=== PATIENT | female | born 1955 | race Hispanic/Latino ===

== ENCOUNTER 2018-08-09 16:38 | Inpatient (IN) | payer MEDICARE ==
[~2018-08-09] VITALS: Ht 162.6 cm; Wt 103.6 kg
[~2018-08-09 16:38] MED LIST: ACET-2900 PO; ALBU8.5H8 IH; ATOR20TA65 PO; CASCARA SAGRADA PO; DICY10CA13 PO; DULO20CA17 PO; FLUT16H NASAL; HYDROCORTISONE CREAM TP; IBUP-2077 PO; LORA10TA7 PO; LOSA50TA25 PO; OMEP40CA37 PO; PHEN100C9 PO; TRAM50TA4 PO
[2018-08-09 17:49] LABS: BASOPHILS % (AUTO) 0.3 % (0.0-5.0); EOSINOPHILS % (AUTO) 0.9 % (0.0-8.0); HEMATOCRIT 42.9 % (36-48); LYMPHOCYTES % (AUTO) 10.9 % (21.0-51.0); MEAN CORPUSCULAR VOLUME 88.1 fL (79-99); MONOCYTES % (AUTO) 6.3 % (3.0-13.0); NEUTROPHILS % (AUTO) 81.6 % (40.0-77.0); PLATELET COUNT (AUTO) 159 K/uL (130-400); RED BLOOD CELL COUNT(AUTO) 4.87 MIL/uL (4.00-5.50); RED CELL DISTRIBUTION WIDTH 14.2 % (11.0-15.5); WHITE BLOOD COUNT (AUTO) 6.2 K/uL (4.8-10.8)
[2018-08-09 17:55] LABS: INR 1.09 (0.85-1.15); PARTIAL THROMBOPLASTIN TIME 26.6 SEC (26.3-35.5); PROTHROMBIN TIME 11.4 SEC (9.6-11.6)
[2018-08-09] MEDS ORDERED: ONDANSETRON HCL 4 MG/2 ML VIAL ONE (17:57)
[2018-08-09] MEDS ORDERED: SODIUM CHLORIDE 0.9% 1000ML 1,000 ML IV ONE (17:57)
[2018-08-09] MEDS ORDERED: METOCLOPRAMIDE 10 MG/2 ML VIAL ONE (17:57)
[2018-08-09 17:58] LABS: CREATININE 0.8 mg/dL (0.5-1.5); POTASSIUM 3.5 mmol/L (3.5-5.1)
[2018-08-09] MEDS ORDERED: FAMOTIDINE/PF 20 MG/2 ML VIAL IV ONE (17:58)
[2018-08-09] MEDS ORDERED: MORPHINE SULFATE 4 MG/1ML SYG ONE (17:58)
[2018-08-09 18:02] LABS: ALBUMIN 3.2 g/dL (3.5-5.0); BILIRUBIN,TOTAL 4.7 mg/dL (0.2-1.0); TOTAL PROTEIN, SERUM 7.5 g/dL (6.0-8.3)
[2018-08-09 18:30] LABS: APPEARANCE,URINE Cloudy (CLEAR); BILIRUBIN,URINE Large (NEGATIVE); GLUCOSE, URINE (UA) Negative (NEGATIVE); KETONES,URINE Negative (NEGATIVE); LEUKOCYTE ESTERASE ,URINE Moderate (NEGATIVE); NITRATE,URINE Positive (NEGATIVE); OCCULT BLOOD,URINE Negative (NEGATIVE); PROTEIN,URINE POS 1+ (NEGATIVE)
[2018-08-09 18:36] LABS: COLOR,URINE Brown (YELLOW)
[2018-08-09 18:45] LABS: BACTERIA,URINE Few /HPF (None Seen); MUCUS,URINE Moderate LPF (None Seen); RBC,URINE None Seen /HPF (0-1)
[2018-08-09 18:46] LABS: OTHER CASTS, URINE WBC CASTS 1+ /LPF (None Seen)
[2018-08-09] MEDS ORDERED: ACETAMINOPHEN 325 MG TAB PO PRN (19:45)
[2018-08-09] MEDS ORDERED: ONDANSETRON HCL 4 MG/2 ML VIAL IV PRN (19:45)
[2018-08-09] MEDS ORDERED: ZOSYN 3.375GM+NS 50ML 50 ML IV ONE (19:52)
[2018-08-09] MEDS ORDERED: HYDROCORTISONE 2.5% 28GM CREAM TP PRN (20:00)
[2018-08-09] MEDS ORDERED: LORATADINE 10 MG TABLET PO PRN (20:00)
[2018-08-09] MEDS ORDERED: TRAMADOL HCL 50 MG TABLET PO PRN (20:00)
[2018-08-09] MEDS ORDERED: FLUTICASONE PROPIONATE 50MCG/SPRAY 16 GM BOTTLE NS PRN (20:00)
[2018-08-09] MEDS ORDERED: DICYCLOMINE HCL 20 MG TAB PO PRN ×2 (20:00→20:15)
[2018-08-09] MEDS ORDERED: ALBUTEROL SULFATE 0.083% 2.5 MG/3 ML INH IH PRN (20:00)
[2018-08-09 20:30] VITALS: BP 128/64
[2018-08-09] MEDS: **HM**(Duloxetine HCl 20 MG PO SCH (21:00)
[2018-08-09] MEDS: PHENYTOIN SODIUM 100 MG ERCAP PO SCH (22:14)
[2018-08-09] MEDS: LACTATED RINGERS 1000ML 1,000 ML IV SCH (22:14)
[2018-08-09] MEDS: ATORVASTATIN CALCIUM 20 MG TABLET PO SCH (22:14)
[2018-08-09] MEDS: FAMOTIDINE/PF 20 MG/2 ML VIAL IV SCH (22:15)
[2018-08-10] VITALS: BP 124/61
[2018-08-10 03:49] VITALS: BP 130/71
[2018-08-10] MEDS: LACTATED RINGERS 1000ML 1,000 ML IV SCH ×2 (03:50→21:42)
[2018-08-10 04:25] LABS: HEMATOCRIT 37.9 % (36-48); MEAN CORPUSCULAR HEMOGLOBIN 30.3 pg (27.0-33.0); MEAN CORPUSCULAR HGB CONC 34.6 g/dL (32.0-36.0); MEAN CORPUSCULAR VOLUME 87.7 fL (79-99); PLATELET COUNT (AUTO) 163 K/uL (130-400); RED BLOOD CELL COUNT(AUTO) 4.32 MIL/uL (4.00-5.50); RED CELL DISTRIBUTION WIDTH 14.1 % (11.0-15.5); WHITE BLOOD COUNT (AUTO) 4.1 K/uL (4.8-10.8)
[2018-08-10 04:39] LABS: ALBUMIN 2.6 g/dL (3.5-5.0); BILIRUBIN,TOTAL 2.9 mg/dL (0.2-1.0); CREATININE 0.6 mg/dL (0.5-1.5); CRP QUANTITATIVE 126.1 mg/L (0.00-9.0); POTASSIUM 3.6 mmol/L (3.5-5.1); TOTAL PROTEIN, SERUM 6.3 g/dL (6.0-8.3)
[2018-08-10 05:08] LABS: BAND NEUTROPHILS % (MANUAL) 5 % (0-2); BASOPHILS % (MANUAL) 1 % (0-2); EOSINOPHILS % (MANUAL) 2 % (1-6); LYMPHOCYTES % (MANUAL) 17 % (22-44); MAN.DIFF COMMENT-IMPRESSION MANUAL DIFFERENTIAL; MONOCYTES % (MANUAL) 9 % (2-9); PLATELET MORPHOLOGY COMMENT ADEQUATE; SEGMENTED NEUTROPHILS % 66 % (40-70)
[2018-08-10 08:00] VITALS: BP 138/78
[2018-08-10] MEDS ORDERED: CASCARA SAGRADA PO PRN (09:00)
[2018-08-10] MEDS: PHENYTOIN SODIUM 100 MG ERCAP PO SCH ×2 (09:03→21:43)
[2018-08-10] MEDS: FAMOTIDINE/PF 20 MG/2 ML VIAL IV SCH ×2 (09:03→21:43)
[2018-08-10] MEDS: LOSARTAN 50 MG TABLET PO SCH (09:03)
[2018-08-10 11:00] VITALS: BP 128/71
[2018-08-10 16:00] VITALS: BP 134/69
[2018-08-10 20:00] VITALS: BP 128/74
[2018-08-10] MEDS: **HM**(Duloxetine HCl 20 MG PO SCH (21:00)
[2018-08-10] MEDS: ATORVASTATIN CALCIUM 20 MG TABLET PO SCH (21:43)
[2018-08-11] VITALS: BP 136/62
[2018-08-11 04:00] VITALS: BP 121/60
[2018-08-11 05:19] LABS: HEMATOCRIT 43.3 % (36-48); MEAN CORPUSCULAR HEMOGLOBIN 29.7 pg (27.0-33.0); MEAN CORPUSCULAR HGB CONC 33.4 g/dL (32.0-36.0); MEAN CORPUSCULAR VOLUME 88.9 fL (79-99); RED BLOOD CELL COUNT(AUTO) 4.87 MIL/uL (4.00-5.50); RED CELL DISTRIBUTION WIDTH 13.9 % (11.0-15.5); WHITE BLOOD COUNT (AUTO) 4.1 K/uL (4.8-10.8)
[2018-08-11 05:24] LABS: ALBUMIN 2.8 g/dL (3.5-5.0); BILIRUBIN,TOTAL 1.6 mg/dL (0.2-1.0); CREATININE 0.6 mg/dL (0.5-1.5); POTASSIUM 3.7 mmol/L (3.5-5.1); TOTAL PROTEIN, SERUM 6.8 g/dL (6.0-8.3)
[2018-08-11 05:25] LABS: INR 1.01 (0.85-1.15); PARTIAL THROMBOPLASTIN TIME 22.2 SEC (26.3-35.5); PROTHROMBIN TIME 10.6 SEC (9.6-11.6)
[2018-08-11 05:31] LABS: PLATELET COUNT (AUTO) 135 K/uL (130-400)
[2018-08-11 08:00] VITALS: BP 154/85
[2018-08-11] MEDS: FAMOTIDINE/PF 20 MG/2 ML VIAL IV SCH ×2 (08:31→21:46)
[2018-08-11] MEDS: LOSARTAN 50 MG TABLET PO SCH (08:31)
[2018-08-11] MEDS: PHENYTOIN SODIUM 100 MG ERCAP PO SCH ×2 (08:32→21:45)
[2018-08-11 11:00] VITALS: BP 138/83
[2018-08-11] MEDS ORDERED: IOHEXOL-350 75 ML VIAL IV ONE (11:39)
[2018-08-11] MEDS ORDERED: LEVOFLOXACIN 500 MG/D5W 100 ML 100 ML IV SCH (14:45)
[2018-08-11 16:00] VITALS: BP 131/75
[2018-08-11] MEDS: LACTATED RINGERS 1000ML 1,000 ML IV SCH (18:01)
[2018-08-11 20:00] VITALS: BP 146/88
[2018-08-11] MEDS: **HM**(Duloxetine HCl 20 MG PO SCH (21:00)
[2018-08-11] MEDS: ATORVASTATIN CALCIUM 20 MG TABLET PO SCH (21:46)
[2018-08-12] VITALS: BP 145/95
[2018-08-12 04:00] VITALS: BP 138/68
[2018-08-12 04:55] LABS: HEMATOCRIT 40.4 % (36-48); MEAN CORPUSCULAR HEMOGLOBIN 30.2 pg (27.0-33.0); MEAN CORPUSCULAR HGB CONC 34.6 g/dL (32.0-36.0); MEAN CORPUSCULAR VOLUME 87.4 fL (79-99); PLATELET COUNT (AUTO) 210 K/uL (130-400); RED BLOOD CELL COUNT(AUTO) 4.63 MIL/uL (4.00-5.50); RED CELL DISTRIBUTION WIDTH 13.9 % (11.0-15.5); WHITE BLOOD COUNT (AUTO) 3.8 K/uL (4.8-10.8)
[2018-08-12 05:10] LABS: CREATININE 0.7 mg/dL (0.5-1.5); POTASSIUM 3.6 mmol/L (3.5-5.1)
[2018-08-12] MEDS: LOSARTAN 50 MG TABLET PO SCH (09:46)
[2018-08-12] MEDS: FAMOTIDINE/PF 20 MG/2 ML VIAL IV SCH (09:46)
[2018-08-12] MEDS: PHENYTOIN SODIUM 100 MG ERCAP PO SCH (09:46)
[2018-08-12] MEDS ORDERED: LEVO500T89 PO (09:50)
== END 2018-08-12 11:40 | disposition home or self-care (01) | DRG 690 ==
LOC: EDH 16:38 → OBSVTOIN 18:45 → EDHIP 18:45 → 3AH 19:53
PROVIDERS: ADMIT Internal Medicine; ATTEND Internal Medicine
DX: N39.0 Urinary tract infection, site not specified (principal); K52.9 Noninfective gastroenteritis and colitis, unspecified; K76.0 Fatty (change of) liver, not elsewhere classified; R16.0 Hepatomegaly, not elsewhere classified; N28.1 Cyst of kidney, acquired; E86.0 Dehydration; E78.5 Hyperlipidemia, unspecified; K80.20 Calculus of gallbladder without cholecystitis without obstruction; I10 Essential (primary) hypertension; Z86.73 Personal history of transient ischemic attack (TIA), and cerebral infarction without residual deficits; Z90.710 Acquired absence of both cervix and uterus; Z88.8 Allergy status to other drugs, medicaments and biological substances
CPT/HCPCS: 36415; 74177; 76705; 80048; 80053; 80185; 81001; 83605; 83690; 84484; 85025; 85027; 85610; 85730; 86140; 87040; 93005; 94664; G0378; J1956; J2270; J2405; J2543; J2765; J3490; J7030; J7120; Q9967

== ENCOUNTER 2018-10-20 07:38 | Day surgery (SDC) | payer MEDICARE ==
[2018-10-16 13:55] VITALS: BP 139/78
[2018-10-16 14:14] LABS: BILIRUBIN,URINE Negative (NEGATIVE); COLOR,URINE Yellow (YELLOW); GLUCOSE, URINE (UA) Negative (NEGATIVE); KETONES,URINE Negative (NEGATIVE); LEUKOCYTE ESTERASE ,URINE Moderate (NEGATIVE); NITRATE,URINE Negative (NEGATIVE); OCCULT BLOOD,URINE Negative (NEGATIVE); PROTEIN,URINE Negative (NEGATIVE)
[2018-10-16 14:14] LABS: BASOPHILS % (AUTO) 0.9 % (0.0-5.0); EOSINOPHILS % (AUTO) 2.5 % (0.0-8.0); HEMATOCRIT 44.7 % (36-48); LYMPHOCYTES % (AUTO) 37.2 % (21.0-51.0); MEAN CORPUSCULAR HEMOGLOBIN 29.9 pg (27.0-33.0); MEAN CORPUSCULAR HGB CONC 33.5 g/dL (32.0-36.0); MEAN CORPUSCULAR VOLUME 89.1 fL (79-99); MONOCYTES % (AUTO) 6.2 % (3.0-13.0); NEUTROPHILS % (AUTO) 53.2 % (40.0-77.0); NUCLEATED RED BLOOD CELLS 0.1 % (0.0-0.19); PLATELET COUNT (AUTO) 183 K/uL (130-400); RED BLOOD CELL COUNT(AUTO) 5.02 MIL/uL (4.00-5.50); RED CELL DISTRIBUTION WIDTH 14.1 % (11.0-15.5)
[2018-10-16 14:27] LABS: APPEARANCE,URINE SLIGHTLY CLOUDY (CLEAR)
[2018-10-16 14:28] LABS: ALBUMIN 3.7 g/dL (3.5-5.0); BILIRUBIN,DIRECT 0.1 mg/dL (0.0-0.3); BILIRUBIN,TOTAL 0.3 mg/dL (0.2-1.0); CREATININE 0.7 mg/dL (0.5-1.5); POTASSIUM 4.5 mmol/L (3.5-5.1); TOTAL PROTEIN, SERUM 7.8 g/dL (6.0-8.3)
[2018-10-16 14:30] LABS: RBC,URINE 0-1 /HPF (0-1)
[2018-10-16 14:31] LABS: BACTERIA,URINE Few /HPF (None Seen); SQUAMOUS EPITHELIAL CELL,UR Few /HPF (0-2)
[2018-10-20] VITALS (15 sets, daily range): BP systolic 131–182; BP diastolic 69–109
[~2018-10-20] VITALS: Ht 156.2 cm; Wt 104.4 kg
[~2018-10-20 07:38] MED LIST changes: -ACET-2900 PO; +CHOL400C9 PO; -DICY10CA13 PO; -DULO20CA17 PO; -FLUT16H NASAL; -IBUP-2077 PO; -LORA10TA7 PO; -LOSA50TA25 PO; +LOSA50TA64 PO; +NAPR-1192 PO; -TRAM50TA4 PO; +TURM1TAB PO
[2018-10-20] MEDS ORDERED: DEXAMETHASONE SOD PHOSPHATE 10MG/ML 1ML VIAL ONE (08:07)
[2018-10-20] MEDS ORDERED: ONDANSETRON HCL 4 MG/2 ML VIAL ONE ×2 (08:07→11:27)
[2018-10-20] MEDS ORDERED: LIDOCAINE PF 2% 5ML ABBOJECT ONE (08:07)
[2018-10-20] MEDS ORDERED: SUCCINYLCHOLINE 200MG/10ML SYR ONE (08:07)
[2018-10-20] MEDS ORDERED: PROPOFOL 10 MG/ML 20ML VIAL IV ONE (08:07)
[2018-10-20] MEDS ORDERED: NEOSTIGMINE 5MG/5ML SYR IV ONE (08:08)
[2018-10-20] MEDS ORDERED: FENTANYL CITRATE PF 50 MCG/1 ML 2ML VIAL ONE (08:08)
[2018-10-20] MEDS ORDERED: GLYCOPYRROLATE 1 MG/5 ML SYRINGE ONE (08:08)
[2018-10-20] MEDS ORDERED: ROCURONIUM 10MG/1ML SYR 10 MG/ML ML ONE (08:09)
[2018-10-20] MEDS ORDERED: MIDAZOLAM HCL 1 MG/ML 2ML VIAL ONE (08:09)
[2018-10-20] MEDS ORDERED: LACTATED RINGERS 1000ML 1,000 ML IV ONE (08:12)
[2018-10-20] MEDS ORDERED: HEPARIN SODIUM 1000UNIT/ML 10ML VIAL ONE (08:29)
[2018-10-20] MEDS ORDERED: IPRATROPIUM/ALBUTEROL SULFATE 3 ML SOLUTION IH ONE (10:02)
[2018-10-20] MEDS ORDERED: MORPHINE SULFATE 4 MG/1ML SYG ONE (10:04)
--- NOTE | 2018-10-20 10:55 | NUR ---
RECEIVE PT RECEIVED FROM PACU VIA STRETCHER. PT AWAKE, DROWSY, ORIENTED X3. ABDOMEN SOFT. BAND AIDS X4 DRY AND INTACT, NO OOZING NO HEMATOMA NOTED. PT STATES SHE HAS PAIN TO INCISION SITE, SCORE OF 5. PT REPOSITIONED COMFORTABLY, ALLOWED PT TO REST. CALL W[facility]KINS WITHIN REACH, WILL CALL FAMILY TO COME IN TO ROOM. Addendum: 10/20/18 at 1359 by SARA ANDREW RN RN ADDENDUM: PER REPORT FROM PACU NURSE Suzy ABDUL, DR. ARANA IS AWARE OF PT'S HEART RATE IN THE LOW 50'S
--- NOTE | 2018-10-20 11:40 | NUR ---
NAUSEA PT COMPLAINED OF NAUSEA, NO VOMITING NOTED. ZOFRAN 4 MG IV GIVEN BY Sonal IRENE LVN. PT TOLERATED WELL. WILL CONTINUE TO MONITOR.
--- NOTE | 2018-10-20 12:15 | NUR ---
DISCHARGE PT DISCHARGED VIA WHEELCHAIR WITH DAUGHTER. PT STABLE. PT STATES NAUSEA RELIEVED. DENIES PAIN. ABDOMEN REMAINS SOFT, NO OOZING NO HEMATOMA NOTED. ORAL FLUIDS, ICE CHIPS TOLERATED WELL. DISCHARGE INSTRUCTIONS GIVEN BY Sonal IRENE LVN TO DAUGHTER. VERBALIZED UNDERSTANDING.
== END 2018-10-20 12:15 | disposition home or self-care (01) ==
LOC: DAH 07:38
PROVIDERS: ATTEND Surgery
DX: K80.10 Calculus of gallbladder with chronic cholecystitis without obstruction (principal); I10 Essential (primary) hypertension; Z68.41 Body mass index [BMI] 40.0-44.9, adult; G89.4 Chronic pain syndrome; I67.1 Cerebral aneurysm, nonruptured; F32.9 Major depressive disorder, single episode, unspecified; G40.909 Epilepsy, unspecified, not intractable, without status epilepticus; E78.00 Pure hypercholesterolemia, unspecified; E55.9 Vitamin D deficiency, unspecified; E66.01 Morbid (severe) obesity due to excess calories; M54.30 Sciatica, unspecified side; Z98.890 Other specified postprocedural states; Z86.010 Personal history of colon polyps; Z90.710 Acquired absence of both cervix and uterus; Z79.899 Other long term (current) drug therapy; M19.90 Unspecified osteoarthritis, unspecified site; Z82.49 Family history of ischemic heart disease and other diseases of the circulatory system
CPT/HCPCS: 36415; 47562; 80048; 80076; 81001; 85025; 88304; 94640; A4450; A4600; C1769 ×4; J0330; J1100; J1644; J2001; J2250; J2270; J2405 ×2; J2704; J2710; J3010; J3490; J7030; J7120 ×2

== ENCOUNTER → 2024-06-29 | Outpatient (CLI) | payer OTHER, MEDICAID ==
[~2024-06-29] MED LIST changes: +OMEP40CA21 PO; -OMEP40CA37 PO
--- NOTE | 2024-06-29 10:41 | HMCIMG ---
MAMMO SCREENING BILATERAL HISTORY: Screening mammogram. COMPARISON: 07/08/2016 TECHNIQUE: Bilateral screening mammogram with CAD was performed with craniocaudal and mediolateral oblique projections. FINDINGS: There are scattered areas of fibroglandular density. Scattered microcalcifications are seen in both breasts unchanged. There is no evidence of a dominant mass, or suspicious microcalcification. There is no evidence of nipple retraction or skin thickening. IMPRESSION: 1. Stable mammogram. Patient was entered into a reminder system with a target due date for their next mammogram. BI-RADS: CATEGORY 2: BENIGN FINDINGS Recommend monthly self breast exam as well as annual clinical examination. A negative x-ray should not delay biopsy if a dominant or clinically suspicious mass is present, since 8-10% of cancers are not identified by mammography. Dense breasts particularly, may obscure an underlying neoplasm. Some of these may be detected clinically and therefore, clinical examination is an essential part of breast evaluation.
== END | disposition home or self-care (01) ==
LOC: RAH 09:35
PROVIDERS: ATTEND Family Medicine
DX: Z12.31 Encounter for screening mammogram for malignant neoplasm of breast (principal); R92.323 Mammographic fibroglandular density, bilateral breasts; R92.0 Mammographic microcalcification found on diagnostic imaging of breast
CPT/HCPCS: 77067